=== PATIENT | female | born 1990 | race Two or more races ===

== ENCOUNTER 2017-07-31 10:05 | Emergency (ER) | payer MEDICAID ==
[~2017-07-31] VITALS: Ht 157.5 cm; Wt 81.6 kg
[2017-07-31] MEDS ORDERED: LEVOFLOXACIN 500MG 100 ML IV ONE (10:32)
[2017-07-31 10:43] VITALS: BP 107/89
== END 2017-07-31 11:28 | disposition home or self-care (01) ==
LOC: ER 10:05
DX: N39.0 Urinary tract infection, site not specified (principal); M62.830 Muscle spasm of back
CPT/HCPCS: 81002; 99283; J1956

== ENCOUNTER 2020-07-30 12:30 | Emergency (ER) | payer MEDICAID ==
[~2020-07-30] VITALS: Ht 160 cm; Wt 90.7 kg
[2020-07-30 12:41] VITALS: BP 150/82
[2020-07-30 13:32] LABS: Urine Bacteria FEW /hpf (None Seen); Urine Blood Negative /uL (Negative); Urine Mucus FEW (None Seen); Urine Specific Gravity 1.034 (1.001-1.035); Urine WBC 2 /hpf (0 - 5)
== END 2020-07-30 14:59 | disposition home or self-care (01) ==
LOC: ER 12:30
DX: N76.0 Acute vaginitis (principal)
CPT/HCPCS: 81001; 81025; 87210

== ENCOUNTER 2024-03-22 14:40 | Emergency (ER) | payer MEDICAID ==
[~2024-03-22] VITALS: Ht 154.9 cm; Wt 88.5 kg
[2024-03-22 14:55] VITALS: TEMP 98.9
[2024-03-22 15:03] VITALS: BP 133/54; PULSE 86; RESP 18; O2SAT 96
[2024-03-22] MEDS: ACETAMINOPHEN 500 MG TAB PO ONE (16:14)
== END 2024-03-22 17:14 | disposition home or self-care (01) ==
LOC: ER 14:40
DX: M25.532 Pain in left wrist (principal); R10.2 Pelvic and perineal pain; M79.605 Pain in left leg; V43.52XA Car driver injured in collision with other type car in traffic accident, initial encounter; Y93.89 Activity, other specified; Y92.488 Other paved roadways as the place of occurrence of the external cause; Y99.8 Other external cause status
CPT/HCPCS: 36415; 84702